=== PATIENT | female | born 2000 | race Asian ===

== ENCOUNTER 2022-12-07 17:10 | Emergency (ER) | payer MEDICAID, OTHER ==
--- NOTE | 2022-12-07 17:34 | ED Physician Documentation ---
History of Present Illness - Stated complaint Stated Complaint: FATIGUE/NAUSEA - Chief complaint Chief Complaint: General - History obtained from History obtained from: Patient - Additonal information Additional information: 22-year-old woman who is a had her last menses around November 05. She is 4 days late now. For the last 5 days or so she has felt profoundly fatigued, some epigastric discomfort and difficulty with swallowing, over the last 2 days has had constant stabbing left upper chest pain that is nonexertional but it is associated with shortness of breath. She has a history of a heart murmur with reportedly negative echo. No history of coronary disease. No recent travel. No pedal edema or calf pain. PD PAST MEDICAL HISTORY - Allergies Allergies/Adverse Reactions: Allergies Allergy/AdvReac Type Severity Reaction Status Date / Time hydrocodone Allergy Itching Verified 12/07/22 17:18 Sulfa (Sulfonamide Allergy Unknown Verified 12/07/22 17:18 Antibiotics) PD ED PE NORMAL - Vitals Vital signs reviewed: Yes - General General: Alert and oriented X 3, No acute distress - HEENT HEENT: PERRL, EOMI - Neck Neck: Supple, no meningeal sign, No bony TTP - Cardiac Cardiac: RRR, No murmur - Respiratory Respiratory: No respiratory distress, Clear bilaterally - Abdomen Abdomen: Non tender - Back Back: No CVA TTP, No spinal TTP - Derm Derm: Normal color - Extremities Extremities: No edema, No calf tenderness / cord - Neuro Neuro: Alert and oriented X 3, Normal speech Results - Vitals Vitals: Vital Signs - 24 hr 12/07/22 12/07/22 17:18 19:21 Temperature 36.5 C 36.5 C Heart Rate 85 98 Respiratory 16 18 Rate Blood Pressure 140/80 H 130/88 H O2 Saturation 100 99 Oxygen O2 Source Room air - EKG (time done) 8927 EKG releavant findings:: EKG personally interpreted by author of this note. Relevant findings are: Rate: Rate (enter#) (85) Rhythm: NSR [place]: Normal Intervals: Normal MS QRS: Normal Ischemia: Normal ST segments - Labs Labs: Laboratory Tests 12/07/22 12/07/22 12/07/22 18:32 18:32 18:32 WBC 10.2 RBC 5.64 H Hgb 14.6 Hct 46.3 MCV 82.1 MCH 25.9 L MCHC 31.5 L RDW 13.0 Plt Count 346 MPV 9.6 Neut # (Auto) 5.3 Lymph # (Auto) 3.9 H [place] # (Auto) 0.7 Eos # (Auto) 0.1 Baso # (Auto) 0.1 Absolute Nucleated RBC 0.00 Nucleated RBC % 0.0 Sodium 139 Potassium 3.8 Chloride 99 L Carbon Dioxide 30 Anion Gap 10.0 BUN 11 Creatinine 0.7 Estimated GFR (MDRD) 107 Glucose 100 Calcium 10.0 Total Bilirubin 0.6 AST 57 H ALT 91 H Alkaline Phosphatase 72 Troponin I High Sens < 2.3 L Total Protein 8.9 H Albumin 4.7 Globulin 4.2 Albumin/Globulin Ratio 1.1 HCG, Quant 12/07/22 18:32 WBC RBC Hgb Hct MCV MCH MCHC RDW Plt Count MPV Neut # (Auto) Lymph # (Auto) [place] # (Auto) Eos # (Auto) Baso # (Auto) Absolute Nucleated RBC Nucleated RBC % Sodium Potassium Chloride Carbon Dioxide Anion Gap BUN Creatinine Estimated GFR (MDRD) Glucose Calcium Total Bilirubin AST ALT Alkaline Phosphatase Troponin I High Sens Total Protein Albumin Globulin Albumin/Globulin Ratio HCG, Quant < 0.60 Procedures - General procedure General procedure: The nurses and wagon driver salesperson had trouble with the blood draw and I was able to draw blood from a vein in the right antecubital fossa using real-time ultrasound guidance. PD Medical Decision Making - ED course ED course: 22-year-old woman presents with complaints of fatigue, nausea, some atypical upper chest pain. She has a benign exam with normal vital signs. EKG completely normal, sans ischemia. Work-up consisted of CBC which was normal. CMP notable for may very mild elevation in liver enzymes. Troponin negative /normal. Serum beta-hCG negative ruling out . She had been on Depo- Provera, subsequently had a copper IUD which was removed due to heavy bleeding and has only had 1 normal menses since. She declined treatment for her symptoms. We discussed need for follow-up. Departure - Departure Disposition: 01 Home, Self Care Clinical Impression: Fatigue, Chest pain, Missed menses Condition: Good Record reviewed to determine appropriate education?: Yes Instructions: ED Chest Pain NonCardiac Comments: As discussed, the only abnormal finding today was very mild elevation in your liver enzymes. You should establish with a primary care physician and discuss this. Return for new or worsening symptoms. The remainder of the work-up including blood test was negative.
[2022-12-07 18:44] LABS: BASOPHILS # (AUTO) 0.1 10^3/uL (0.0-0.1); BASOPHILS % (AUTO) 1.2 %; EOSINOPHILS # (AUTO) 0.1 10^3/uL (0.0-0.7); EOSINOPHILS % (AUTO) 1.2 %; HCT - HEMATOCRIT 46.3 % (37.0-47.0); HGB - HEMOGLOBIN 14.6 g/dL (12.0-16.0); LYMPHOCYTES # (AUTO) 3.9 10^3/uL (1.5-3.5); LYMPHOCYTES % (AUTO) 38.3 %; MEAN CORPUSCULAR HEMOGLOBIN 25.9 pg (27.0-31.0); MEAN CORPUSCULAR HGB CONC 31.5 g/dL (32.0-36.0); MEAN CORPUSCULAR VOLUME 82.1 fL (81.0-99.0); MEAN PLATELET VOLUME 9.6 fL (7.9-10.8); MONOCYTES # (AUTO) 0.7 10^3/uL (0.0-1.0); MONOCYTES % (AUTO) 6.7 %; NEUTROPHILS # (AUTO) 5.3 10^3/uL (1.5-6.6); NEUTROPHILS % (AUTO) 52.1 %; PLT - PLATELET COUNT 346 10^3/uL (130-450); RED BLOOD COUNT 5.64 10^6/uL (4.20-5.40); WHITE BLOOD COUNT 10.2 x10^3/uL (4.8-10.8)
[2022-12-07 19:00] LABS: ALBUMIN 4.7 g/dL (3.2-5.5); ALBUMIN/GLOBULIN RATIO 1.1 (1.0-2.2); BILIRUBIN,TOTAL 0.6 mg/dL (0.2-1.0); CREATININE 0.7 mg/dL (0.4-1.0); POTASSIUM 3.8 mmol/L (3.5-5.0); TOTAL PROTEIN 8.9 g/dL (6.7-8.2)
[2022-12-07 19:41] VITALS: BP 130/88
== END 2022-12-07 20:03 | disposition home or self-care (01) ==
LOC: ED 17:10
DX: R53.83 Other fatigue (principal); R07.89 Other chest pain; N91.0 Primary amenorrhea
CPT/HCPCS: 36415; 80053; 84484; 84702; 85025; 93005; 99283; 99284

== ENCOUNTER 2023-02-02 11:46 | Emergency (ER) | payer SELFPAY ==
[2023-02-02 12:22] LABS: BASOPHILS # (AUTO) 0.1 10^3/uL (0.0-0.1); BASOPHILS % (AUTO) 0.6 %; EOSINOPHILS % (AUTO) 0.5 %; HCT - HEMATOCRIT 45.3 % (37.0-47.0); HGB - HEMOGLOBIN 14.6 g/dL (12.0-16.0); LYMPHOCYTES # (AUTO) 2.7 10^3/uL (1.5-3.5); LYMPHOCYTES % (AUTO) 34.3 %; MEAN CORPUSCULAR HEMOGLOBIN 26.3 pg (27.0-31.0); MEAN CORPUSCULAR HGB CONC 32.2 g/dL (32.0-36.0); MEAN CORPUSCULAR VOLUME 81.6 fL (81.0-99.0); MEAN PLATELET VOLUME 9.5 fL (7.9-10.8); MONOCYTES % (AUTO) 12.3 %; NEUTROPHILS # (AUTO) 4.1 10^3/uL (1.5-6.6); NEUTROPHILS % (AUTO) 51.8 %; PLT - PLATELET COUNT 272 10^3/uL (130-450); RED BLOOD COUNT 5.55 10^6/uL (4.20-5.40); RED CELL DISTRIBUTION WIDTH 13.2 % (12.0-15.0); WHITE BLOOD COUNT 7.9 x10^3/uL (4.8-10.8)
[2023-02-02 12:34] LABS: ALBUMIN 4.6 g/dL (3.2-5.5); ALBUMIN/GLOBULIN RATIO 1.1 (1.0-2.2); CALCIUM 9.4 mg/dL (8.5-10.3); CREATININE 0.7 mg/dL (0.4-1.0); POTASSIUM 3.6 mmol/L (3.5-5.0); TOTAL PROTEIN 8.8 g/dL (6.7-8.2)
[2023-02-02 13:02] LABS: GLUCOSE, URINE (UA) NEGATIVE (NEGATIVE); KETONES,URINE (UA) 15 mg/dL (NEGATIVE); LEUKOCYTE ESTERASE, URINE TRACE (NEGATIVE); NITRITE,URINE NEGATIVE (NEGATIVE); OCCULT BLOOD,URINE NEGATIVE (NEGATIVE); PROTEIN,URINE 30 mg/dL (NEGATIVE); UROBILINOGEN,URINE 1 (NORMAL) E.U./dL (NORMAL)
[2023-02-02 13:09] LABS: BILIRUBIN,URINE NEGATIVE (NEGATIVE); CLARITY,URINE CLEAR (CLEAR); HCG UR QUAL NEGATIVE; ICTOTEST,URINE NEGATIVE
[2023-02-02 13:15] LABS: BACTERIA,URINE Few /HPF (None Seen); RBC,URINE 0-5 /HPF (0-5); SQUAMOUS EPITHELIAL CELL,UR MOD Squamous (<= Few); WBC,URINE 0-3 /HPF (0-5)
--- NOTE | 2023-02-02 13:47 | ED Physician Documentation ---
PD HPI ABD PAIN - Stated complaint Stated Complaint: ABD PAIN - Chief complaint Chief Complaint: Abd Pain - History obtained from History obtained from: Patient, Family - History of Present Illness Timing - onset: How many days ago (2) Timing - duration: Days (2) Timing - details: Gradual onset, Still present Quality: Cramping, Sharp, Pain Location: LLQ Radiation: Lower back Improved by: Laying still Worsened by: Position, Palpation Associated symptoms: Nausea, Diarrhea (loose stool only). No: Vomiting Similar symptoms before: Has not had sx before Recently seen: Emergency Dept (2 months ago for atypical chest pain) - Additional information Additional information: Previously well Janeth Gunderson has developed some abdominal pain that began 2 days ago and was associated with some nausea. She did not have any vomiting she has had some loose stool daily. Her pain has persisted and is in the left lower quadrant and it has worsened. She is wondering if she can get something for the pain. She has not had this happen to her previously and she does not have any history of diverticulitis. Review of Systems Constitutional: denies: Fever Ears: denies: Ear pain Nose: denies: Congestion Throat: denies: Sore throat Cardiac: denies: Chest pain / pressure Respiratory: denies: Dyspnea, Cough GI: reports: Abdominal Pain, Nausea, Diarrhea. denies: Vomiting : denies: Dysuria, Frequency Skin: denies: Rash Musculoskeletal: denies: Neck pain, Back pain, Extremity pain Neurologic: denies: Generalized weakness, Focal weakness, Numbness PD PAST MEDICAL HISTORY - Allergies Allergies/Adverse Reactions: Allergies Allergy/AdvReac Type Severity Reaction Status Date / Time hydrocodone Allergy Itching Verified 02/02/23 12:03 Sulfa (Sulfonamide Allergy Unknown Verified 02/02/23 12:03 Antibiotics) PD ED PE NORMAL - Vitals Vital signs reviewed: Yes (Hypertensive) - General General: Alert and oriented X 3, No acute distress, Well developed/nourished - HEENT HEENT: Atraumatic, PERRL, EOMI - Neck Neck: Supple, no meningeal sign, No bony TTP - Cardiac Cardiac: RRR, No murmur - Respiratory Respiratory: No respiratory distress, Clear bilaterally - Abdomen Abdomen: Normal bowel sounds, Soft, Non distended, No organomegaly, Other (Spec ific left lower quadrant tenderness to deep palpation. There is not referred tenderness.) - Back Back: No CVA TTP, No spinal TTP - Derm Derm: Normal color, Warm and dry, No rash - Extremities Extremities: No deformity, No edema - Neuro Neuro: Alert and oriented X 3, demolition hammer operator 2-12 intact, No motor deficit, No sensory deficit, Normal speech Eye Opening: Spontaneous Motor: Obeys Commands Verbal: Oriented GCS Score: 15 - Psych Psych: Normal mood, Normal affect Results - Vitals Vitals: Vital Signs - 24 hr 02/02/23 02/02/23 02/02/23 12:00 12:03 12:53 Temperature 36.6 C 36.6 C 36.9 C Heart Rate 93 93 102 H Respiratory 16 16 12 Rate Blood Pressure 136/103 H 136/103 H 134/92 H O2 Saturation 99 99 96 02/02/23 02/02/23 02/02/23 14:03 16:00 18:00 Temperature 36.8 C Heart Rate 88 86 76 Respiratory 16 16 16 Rate Blood Pressure 110/77 112/78 118/77 O2 Saturation 94 96 99 Oxygen O2 Source Room air - Labs Labs: Laboratory Tests 02/02/23 02/02/23 02/02/23 12:11 12:17 12:17 WBC 7.9 RBC 5.55 H Hgb 14.6 Hct 45.3 MCV 81.6 MCH 26.3 L MCHC 32.2 RDW 13.2 Plt Count 272 MPV 9.5 Neut # (Auto) 4.1 Lymph # (Auto) 2.7 [place] # (Auto) 1.0 Eos # (Auto) 0.0 Baso # (Auto) 0.1 Absolute Nucleated RBC 0.00 Nucleated RBC % 0.0 Sodium 139 Potassium 3.6 Chloride 105 Carbon Dioxide 25 Anion Gap 9.0 BUN 11 Creatinine 0.7 Estimated GFR (MDRD) 106 Glucose 103 H Calcium 9.4 Total Bilirubin 1.0 AST 53 H ALT 82 H Alkaline Phosphatase 67 Total Protein 8.8 H Albumin 4.6 Globulin 4.2 Albumin/Globulin Ratio 1.1 Lipase 26 Urine Color DARK YELLOW Urine Clarity CLEAR Urine pH 6.0 Ur Specific [place] 1.025 Urine Protein 30 H Urine Glucose (UA) NEGATIVE Urine Ketones 15 H Urine Occult Blood NEGATIVE Urine Nitrite NEGATIVE Urine Bilirubin NEGATIVE Urine Urobilinogen 1 (NORMAL) Ur Leukocyte Esterase TRACE H Urine RBC 0-5 Urine WBC 0-3 Ur Squamous Epith Cells MOD Squamous H Urine Bacteria Few Ur Microscopic Review INDICATED Urine Culture Comments NOT INDICATED Urine HCG, Qual NEGATIVE - Rads (name of study) CT ab/pel w Relevant Findings:: Prelim report reviewed (Impression: No acute CT findings in the abdomen/pelvis. No evidence of diverticulitis or abscess. Incidental hepatic fatty infiltration.), EMP independent interpretation of test PD Medical Decision Making - ED course Complexity details: reviewed results, re-evaluated patient, considered differential, d/w patient, d/w family Reviewed Lab Results: We reviewed a complete blood count showing a normal white blood cell count normal hemoglobin hematocrit and platelets. We reviewed chemistries showing normal electrolytes and again there is mild elevation in the AST and ALT consis tent with the known fatty infiltrated liver. Urinalysis is unremarkable, the patient is not . This blood work and urinalysis Does not contribute to a specific diagnosis. We were able to do further imaging imaging including a CT scan of the abdomen pelvis and a pelvic ultrasound these studies were unremarkable as well. All findings being normal indicated benign process. The patient has had resolution of her pain with Toradol and no further treatment is provided.A specific diagnosis is not made. ED course: Here in the emergency department Janeth Gunderson is given Toradol with improvement in her pain. We did not find a specific etiology for her pain and she is discharged to follow-up with her primary for recurrence of pains. Departure - Departure Disposition: 01 Home, Self Care Clinical Impression: Abdominal pain Qualifiers: Abdominal location: left lower quadrant Qualified Code(s): R10.32 - Left lower quadrant pain Instructions: ED Abdominal Pain Female Non-Specific Abdominal Pain Follow-Up: [facility] [place] [Provider Group] Comments: Kayley, today we looked at both the CT scan and pelvic ultrasound and did not find a specific cause for your pain. This is actually good news as it means everything inside looks normal. Your blood work and urinalysis look normal as well. If you continue to have episodes of pain that are bad enough that you would need to come to the emergency department, a follow-up is indicated. I have given you the name of a clinic in [place] to follow-up with Discharge Date/Time: 02/02/23 18:19
[2023-02-02] MEDS ORDERED: iohexoL-300 100 ML VIAL ONE (13:54)
[2023-02-02] MEDS ORDERED: KETOROLAC 30 MG/ML VIAL IVP STA (13:56)
[2023-02-02] MEDS ORDERED: ONDANSETRON 4 MG/2 ML VIAL IVP STA (13:56)
[2023-02-02] MEDS ORDERED: iohexoL-300 100 ML VIAL IVP ONE (15:36)
--- NOTE | 2023-02-02 16:33 | CT Report ---
PROCEDURE: CT abdomen pelvis with contrast INDICATIONS: LLQ pain/tenderness CONTRAST: 100 omni 300 TECHNIQUE: After the administration of contrast, 5 mm thick sections acquired from the diaphragms to the symphys is. 5 mm thick coronal and sagittal reformats were acquired. For radiation dose reduction, the foll owing was used: automated exposure control, adjustment of mA and/or kV according to patient size. COMPARISON: None FINDINGS: Image quality: Excellent. Lung bases and heart: Unremarkable. Liver: Hepatic steatosis. No focal mass lesion Gallbladder and biliary tree: Spleen: No splenomegaly. Pancreas: No pancreatic ductal dilation. Adrenals: No adrenal nodule. Kidneys and ureters: No hydronephrosis. No renal cystic lesion which requires follow up. No solid mas s. Bowel and peritoneum: No bowel distension. No pathologic free fluid. Lymph nodes: No central or retroperitoneal adenopathy. Vessels: No infrarenal aortic aneurysm. PELVIS Reproductive organs: Unremarkable. Bladder: No abnormal wall thickening, accounting for underdistension. Pelvic lymph nodes: No pelvic adenopathy by size criteria. Bones: No aggressive osseous abnormality. Other: No significant ventral or inguinal hernia. IMPRESSION: No acute CT findings in the abdomen and pelvis. No evidence of diverticulitis or abscess. Incidental hepatic fatty infiltration Reviewed by: Meet Whitaker MD on 02/02/2023 3:31 PM POLLO Approved by: Meet Whitaker MD on 02/02/2023 3:31 PM POLLO Station ID: [id number]
[2023-02-02 18:08] VITALS: BP 118/77
--- NOTE | 2023-02-02 18:24 | Ultrasound Report ---
PROCEDURE: Pelvic w/Transvag+Doppler Comp INDICATIONS: pelvic pain, L TECHNIQUE: Real-time scanning was performed of the pelvic organs, with image documentation. Additional endovagi nal scanning was necessary due to incomplete visualization of the adnexal and endometrial structures by transabdominal scanning. Doppler interrogation was performed of the ovaries bilaterally. COMPARISON: None. FINDINGS: Uterus: Uterus is anteverted and normal in size at 7.1 x 3.0 x 4.1 cm. The myometrium is homogeneou s. The endometrium measures 7.4 mm in combined thickness. 3.0 x 2.1 x 2.9 Ovaries: The right ovary measures 10.3 cm, with a calculated ovarian volume of 2.9 x 2.1 x 2.6 cc. The left ovary measures 2.9 x 2.1 x 2.6 cm, with a calculated ovarian volume of 8.1 cc. Appropriate blood flow to the ovaries with Doppler interrogation. Less than 12 follicles can be seen in each ov bola. No adnexal masses are seen. No cystic lesions measuring greater than 3 cm. Other: No pathologic free abdominal or pelvic fluid. IMPRESSION: Normal ultrasound pelvis. No evidence of torsion Reviewed by: Meet Whitaker MD on 02/02/2023 5:22 PM POLLO Approved by: Meet Whitaker MD on 02/02/2023 5:22 PM POLLO Station ID: [id number]
== END 2023-02-02 18:19 | disposition home or self-care (01) ==
LOC: ED 11:46
DX: R10.32 Left lower quadrant pain (principal)
CPT/HCPCS: 36415; 74177; 76830; 76856; 80053; 81001; 81025; 83690; 85025; 93975; 96374; 96375; 99284; Q9967; 81003; 87086